=== PATIENT | female | born 1995 | race Hispanic/Latino ===

== ENCOUNTER 2020-10-05 17:40 | Emergency (ER) | payer MEDICAID, OTHER ==
[2020-10-05 18:18] LABS: APPEARANCE,URINE CLOUDY (CLEAR); BILIRUBIN,URINE MODERATE (NEGATIVE); COLOR,URINE BROWN (YELLOW); GLUCOSE, URINE (UA) 250 mg/dL (NEGATIVE); HCG,QUAL RESULT NEGATIVE (NEGATIVE); KETONES,URINE 40 mg/dL (NEGATIVE); LEUKOCYTE ESTERASE ,URINE TRACE (NEGATIVE); NITRATE,URINE POSITIVE (NEGATIVE); OCCULT BLOOD,URINE LARGE (NEGATIVE); PROTEIN,URINE 100 mg/dL (NEGATIVE)
[2020-10-05 18:22] LABS: BACTERIA,URINE Moderate /HPF (None Seen)
[2020-10-05 18:23] LABS: RBC,URINE >100 /HPF (0-1); SQUAMOUS EPITHELIAL CELL,UR Moderate /HPF (0-2)
[2020-10-05 18:24] LABS: AMORPHOUS SEDIMENT,UR Few /LPF (None Seen)
[2020-10-05] MEDS ORDERED: SODIUM CHLORIDE 0.9% 1000ML 1,000 ML IV ONE (18:30)
[2020-10-05] MEDS ORDERED: ONDANSETRON HCL 4 MG/2 ML VIAL ONE (18:30)
[2020-10-05] MEDS ORDERED: KETOROLAC TROMETHAMINE 15MG/ML ONE (18:30)
[2020-10-05 18:55] LABS: BASOPHILS % (AUTO) 0.2 % (0.0-5.0); EOSINOPHILS % (AUTO) 0.1 % (0.0-8.0); HEMATOCRIT 35.7 % (36-48); LYMPHOCYTES % (AUTO) 14.8 % (21.0-51.0); MEAN CORPUSCULAR HEMOGLOBIN 28.8 pg (27.0-33.0); MEAN CORPUSCULAR HGB CONC 33.6 g/dL (32.0-36.0); MEAN CORPUSCULAR VOLUME 85.6 fL (79-99); MONOCYTES % (AUTO) 2.7 % (3.0-13.0); NEUTROPHILS % (AUTO) 81.7 % (40.0-77.0); PLATELET COUNT (AUTO) 431 K/uL (130-400); RED BLOOD CELL COUNT(AUTO) 4.17 MIL/uL (4.00-5.50); RED CELL DISTRIBUTION WIDTH 12.6 % (11.0-15.5); WHITE BLOOD COUNT (AUTO) 15.1 K/uL (4.8-10.8)
[2020-10-05] MEDS ORDERED: CEFTRIAXONE SODIUM 1 GM ONE (18:59)
[2020-10-05 19:04] LABS: CREATININE 0.9 mg/dL (0.5-1.5); POTASSIUM 3.7 mmol/L (3.5-5.1)
[2020-10-05 19:08] LABS: ALBUMIN 3.7 g/dL (3.5-5.0); BILIRUBIN,TOTAL 0.3 mg/dL (0.2-1.0); TOTAL PROTEIN, SERUM 7.7 g/dL (6.0-8.3)
[2020-10-05] MEDS ORDERED: MORPHINE SULFATE 4 MG/1ML SYG ONE (19:22)
[2020-10-10 03:09] LABS: CHLAMYDIA DNA N.A.AMPLIFY Negative (Negative)
== END 2020-10-06 00:17 | disposition home or self-care (01) ==
LOC: EDH 17:40
DX: N10 Acute pyelonephritis (principal); E11.9 Type 2 diabetes mellitus without complications
CPT/HCPCS: 36415; 74176; 76830; 80053; 81001; 81025; 85025; 87088; 87210; 87486; 87797; 96365; 96366; 96375; 99285; J0696; J1885; J2270; J2405; J7030